=== PATIENT | female | born 1980 | race Caucasian/White ===

== ENCOUNTER → 2017-05-22 | Day surgery (SDC) | payer BC ==
[2017-05-10 11:44] VITALS: Ht 162.6 cm; Wt 68.2 kg
[~2017-05-22] VITALS: Ht 162.6 cm; Wt 68.2 kg
[~2017-05-22] MED LIST: LIDOCAINE HCL 2% 2 ML VIAL (20MG/ML) ONE; MULT-506 PO; PROPOFOL IV EMULSION 10 MG/ML 20 ML VIAL IV ONE; SODIUM CHLORIDE 0.9% 500ML 500 ML IV ONE
--- NOTE | 2017-05-22 10:11 | Endo History and Physical ---
History & Physical Date of Service: May 22, 2017. Chief Complaint: Family history of colon ca Referring Physician: Edis History of Present Illness 37 yo CF who presents for colonoscopy secondary to family history of colon cancer. Past Surgical History Hx Cardiac Surgery: Yes (CARDIAC ABLATION) Hx Internal Defibrillator: No Hx Pacemaker: No Hx Abdominal Surgery: No Hx of Implantable Prosthesis: No Hx Post-Op Nausea and Vomiting: No Hx Cancer Surgery: No Hx Thoracic Surgery: No Hx Orthopedic: No Hx Urinary Tract Surgery: No Family History Colon CA, IBD Social History Smoking Status: Former Smoker Hx Substance Use: No Hx Alcohol Use: No Allergies Coded Allergies: Penicillins (Verified Allergy, Mild, HIVES WITH PENICILLIN/AMOXIL, 05/10/17 ) Amoxicillin (Verified Allergy, Unknown, HIVES, 05/10/17) Current Medications Reported Home Medications Medications Dose Route/Sig Max Daily Dose Days Date Category Multivitamin (Multivitamins) Tab 1 Tab PO DAILY AFTERNOON 05/10/17 Reported Vital Signs Weight (Kilograms): 68.18 Height (Feet): 5 Height (Inches): 4 Date Time Temp Pulse Resp B/P (MAP) Pulse Ox O2 Delivery O2 Flow Rate FiO2 05/22/17 10:01 36.9 90 16 128/62 (84) 98 Room Air Physical Exam General Appearance: WD/WN, no apparent distress Respiratory/Chest: Auscultation: breath sounds normal Cardiovascular: Heart Auscultation: RRR Abdomen: Bowel Sounds: normal Inspection & Palpation: soft, non-distended, no tenderness, guarding & rebound Assessment and Plan Assessment: 37 yo CF who presents for colonoscopy secondary to family history of colon cancer. Plan: Proceed with colonoscopy.
--- NOTE | 2017-05-22 11:29 | Discharge Instructions ---
Endoscopy Patient Instructions Date / Procedure(s) Performed May 22, 2017. Colonoscopy Allergy Information Coded Allergies: Penicillins (Verified Allergy, Mild, HIVES WITH PENICILLIN/AMOXIL, 05/10/17 ) Amoxicillin (Verified Allergy, Unknown, HIVES, 05/10/17) Discharge Date / Findings May 22, 2017. Internal hemorrhoids Medication Instructions OK to resume all medications today as prescribed Reported Home Medications Medications Dose Route/Sig Max Daily Dose Days Date Category Multivitamin (Multivitamins) Tab 1 Tab PO DAILY AFTERNOON 05/10/17 Reported Provider Instructions Activity Restrictions - No exercising or heavy lifting for 24 hours. - Do not drink alcohol the day of the procedure. - Do not drive a car or operate machinery until the day after the procedure. - Do not make any important decisions or sign important papers in 24 hours after the procedure. Following Day: - Return to full activity which may include returning to work/school. Diet Start your diet with liquids and light foods (jello, soup, juice, toast). Then eat your usual diet if not nauseated. Treatment For Common After Affects For mild abdominal pain, bloating, or excessive gas: - Rest - Eat lightly - Lie on right side Follow-Up Information Follow-up with [facility] as scheduled Anesthesia Information What You Should Know You have had a procedure that required some medicine to reduce anxiety and discomfort. This treatment is called moderate sedation. After receiving the treatment, you may be sleepy, but you will be able to breathe on your own. The effects of the treatment may last for several hours. Follow these instructions along with Activity/Diet recommendations noted above: * Do NOT do anything where dizziness or clumsiness would be dangerous. * Rest quietly at home today, then you can be up and about tomorrow. * Have a responsible person stay with you the rest of today. * You may have had an I.V. today. If so, you may take the dressing off later today. Recommendations Call your doctor if: * Trouble breathing * Continuous vomiting for more than 24 hours * Temperature above 101 degrees * Severe abdominal pain or bloating * Pain not relieved by pain medicine ordered * There is increased drainage or redness from any incision * A large amount of rectal bleeding greater than 2-3 tablespoons. (If you had a polyp/s removed or have hemorrhoids, a small amount of blood - from the rectum is to be expected.) * You have any unanswered questions or concerns. IN THE EVENT OF A SERIOUS EMERGENCY, GO TO THE NEAREST EMERGENCY ROOM Your discharge instructions were prepared by provider Destin Sanchez. Patient Instructions Signature Page Sheila Bustillos Patient (or Guardian) Signature/Date: I have read and understand the instructions given to me by my caregivers. Caregiver/RN/Doctor Signature/Date: The above-named patient and/or guardian has received patient instructions on this date. + Original Patient Signature Page (only) stays with chart. Please make copy for patient.
--- NOTE | 2017-05-22 11:36 | GI REPORT ---
Procedure Date: 05/22/2017 10:54 AM Procedure: Colonoscopy Indications: Family history of colon cancer in a first-degree relative Medicines: Monitored Anesthesia Care Complications: No immediate complications. Estimated Blood Loss: Estimated blood loss: none. Procedure: Pre-Anesthesia Assessment: - Prior to the procedure, a History and Physical was performed, and patient medications and allergies were reviewed. The patient's tolerance of previous anesthesia was also reviewed. The risks and benefits of the procedure and the sedation options and risks were discussed with the patient. All questions were answered, and informed consent was obtained. Prior Anticoagulants: The patient has taken no previous anticoagulant or antiplatelet agents. ASA Grade Assessment: II - A patient with mild systemic disease. After reviewing the risks and benefits, the patient was deemed in satisfactory condition to undergo the procedure. After I obtained informed consent, the scope was passed under direct vision. Throughout the procedure, the patient's blood pressure, pulse, and oxygen saturations were monitored continuously. The Scope was introduced through the anus and advanced to the terminal ileum. The colonoscopy was performed without difficulty. The patient tolerated the procedure well. The quality of the bowel preparation was good. The terminal ileum, ileocecal valve, appendiceal orifice, and rectum were photographed. Findings: The colon (entire examined portion) appeared normal. Impression: - The entire examined colon is normal. - No specimens collected. Recommendation: - Resume previous diet. - Continue present medications. - Repeat colonoscopy in 5 years for surveillance. - Return to primary care physician as previously scheduled. Destin Sanchez DO 05/22/2017 11:35:55 AM This report has been signed electronically. Note Initiated On: 05/22/2017 10:54 AM I attest to the content of the Intraoperative Record and orders documented therein, exceptions below
--- NOTE | 2017-05-22 11:38 | Anesthesiology Progress Note ---
Anesthesia Post Op Note Date & Time May 22, 2017 at 11:37 Vital Signs Pain Intensity: 0 Vital Signs Past 12 Hours Date Time Temp Pulse Resp B/P (MAP) Pulse Ox O2 Delivery O2 Flow Rate FiO2 05/22/17 11:27 85 16 113/69 (84) 98 Room Air 05/22/17 10:01 36.9 90 16 128/62 (84) 98 Room Air Notes Mental Status: alert / awake / arousable, participated in evaluation Pt Amnestic to Procedure: Yes Nausea / Vomiting: adequately controlled Pain: adequately controlled Airway Patency, RR, SpO2: stable & adequate BP & HR: stable & adequate Hydration State: stable & adequate Anesthetic Complications: no major complications apparent
[2017-05-22 11:57] VITALS: BP 131/84; PULSE 86; O2SAT 99
== END | disposition home or self-care (01) ==
LOC: C.GI 09:17
PROVIDERS: ATTEND Internal Medicine
DX: Z12.11 Encounter for screening for malignant neoplasm of colon (principal); Z80.0 Family history of malignant neoplasm of digestive organs; Z87.891 Personal history of nicotine dependence

== ENCOUNTER → 2017-09-25 | Outpatient (CLI) | payer BC ==
[~2017-09-25] MED LIST changes: -LIDOCAINE HCL 2% 2 ML VIAL (20MG/ML) ONE; -PROPOFOL IV EMULSION 10 MG/ML 20 ML VIAL IV ONE; -SODIUM CHLORIDE 0.9% 500ML 500 ML IV ONE
== END | disposition home or self-care (01) ==
LOC: C.PAPS 10:20
PROVIDERS: ATTEND Obstetrics & Gynecology
DX: Z01.419 Encounter for gynecological examination (general) (routine) without abnormal findings (principal)

== ENCOUNTER 2018-01-27 10:42 | Emergency (ER) | payer BC, OTHER ==
[~2018-01-27] VITALS: Ht 160 cm; Wt 72.8 kg
[2018-01-27 10:55] VITALS: TEMP 36.7; Ht 160 cm; Wt 72.8 kg
--- NOTE | 2018-01-27 11:33 | DIAGNOSTIC IMAGING REPORT ---
CHEST ONE VIEW PORTABLE CLINICAL HISTORY: chest pain dyspnea COMPARISON STUDY: No previous studies for comparison. FINDINGS: The bones soft tissues and hemidiaphragms are normal. The cardiomediastinal silhouette is normal. The lungs are clear. The pulmonary vasculature is normal. IMPRESSION: Negative chest. The above report was generated using voice recognition software. It may contain grammatical, syntax or spelling errors. Electronically signed by: Arsalan Benitez M.D. 01/27/2018 11:32 AM Dictated Date/Time: 01/27/2018 11:32 AM
[2018-01-27 11:49] LABS: HEMATOCRIT 40.1 % (37-47); HEMOGLOBIN 14.5 g/dL (12.0-16.0); MEAN CELL VOLUME 82.5 fL (80-100); MEAN CORPUSCULAR HEMOGLOBIN 29.8 pg (25-34); MEAN CORPUSCULAR HGB CONC 36.2 g/dl (32-36); MEAN PLATELET VOLUME 9.9 fL (7.4-10.4); PLATELET COUNT 284 K/uL (130-400); RED CELL DISTRIBUTION WIDTH CV 12.6 % (11.5-14.5); WHITE BLOOD COUNT 7.28 K/uL (4.8-10.8)
[2018-01-27 12:00] LABS: PTT PATIENT 27.9 SECONDS (21.0-31.0)
[2018-01-27 12:06] LABS: ALBUMIN 4.6 gm/dl (3.4-5.0); CALCIUM 9.4 mg/dl (8.5-10.1); CREATININE 0.58 mg/dl (0.60-1.20)
[2018-01-27 12:11] LABS: CKMB 0.7 ng/ml (0.5-3.6); TOTAL PROTEIN 8.5 gm/dl (6.4-8.2)
[2018-01-27 16:00] VITALS: BP 116/78; PULSE 91; O2SAT 100
--- NOTE | 2018-01-27 21:44 | EMERGENCY ROOM VISIT NOTE ---
History First contact with patient: 11:38 Chief Complaint: CHEST PAIN Stated Complaint: HEAVINESS IN CHEST Nursing Triage Summary: pt reports started with pressure in L chest 1 day ago and increased exertional sob .denies RITTER or NV History of Present Illness The patient is a 37 year old female who presents to the Emergency Room with complaints of left-sided chest heaviness and pressure. Patient reports that she developed these symptoms Saturday night after taking a nap. The patient reports that she had felt fatigued the entire day. She did not notice any shortness of breath, nausea or diaphoresis. The patient reports that the pain has persisted since Saturday. The patient reports a prior history of SVT with ablation procedure performed in 2000 at [facility] in [place]. She denies any significant recurrent SVT. She does occasionally have palpitations. She denies history of thyroid disease. She denies any recent upper respiratory infections, cough, sore throat, sinus congestion or headache. She denies any exertional symptoms, and has no alleviating factors for her pain. She currently rates her discomfort a 3 out of 10 on my exam. The patient reports that she did have a Holter monitor performed approximately 2 months ago that was ordered by her PCP, and was normal, although she did not have a for 24 hour monitor because the battery went . Review of Systems HEENT: Denies dizziness, visual problems, hearing loss, tinnitus. Denies difficulty swallowing or oral lesions. PULMONARY: Denies cough, shortness of breath, sputum production or hemoptysis. CARDIOVASCULAR: Denies dyspnea on exertion, orthopnea or peripheral edema, otherwise see HPI. GASTROINTESTINAL: Denies diarrhea, constipation, nausea, vomiting, or abdominal pain. GENITOURINARY: Denies dysuria, frequency, urgency or nocturia. NEUROLOGIC: Denies history of epilepsy, CVA, TIA or chronic headaches. MUSCULOSKELETAL: Denies history of joint tenderness/swelling. SKIN: Denies rashes or lesions. PSYCHIATRIC: Denies history of depression or mental illness. ENDOCRINE: Denies history of diabetes or thyroid disorders. Past Medical/Surgical History Medical Problems: (1) Anxiety State Nos (2) SVT (supraventricular tachycardia) Surgical Problems: (1) History of cardiac radiofrequency ablation Family History FH: colon cancer in first degree relative <60 years old Social History Smoking Status: Never Smoker Alcohol Use: none Marital Status: single Occupation Status: employed Current/Historical Medications No Active Prescriptions or Reported Meds Physical Exam Vital Signs Date Time Temp Pulse Resp B/P (MAP) Pulse Ox O2 Delivery O2 Flow Rate FiO2 01/27/18 16:00 91 18 116/78 100 01/27/18 14:53 95 18 112/93 97 Room Air 01/27/18 13:48 97 01/27/18 13:00 104 14 127/82 99 01/27/18 11:58 Room Air 01/27/18 11:44 Room Air 01/27/18 11:42 Room Air 01/27/18 11:06 116 01/27/18 10:55 36.7 129 20 145/90 99 Room Air Physical Exam CONSTITUTIONAL: Healthy and well nourished. Alert and oriented X 3 with positive affect. Patient does not appear in any acute distress. HEENT: Normocephalic, atraumatic. Pupils equal, round and reactive. Ears and nares are clear. No scleral icterus or conjunctival injection/pallor. NECK: Full active range of motion without discomfort. RESPIRATORY: Clear to auscultation bilaterally with no wheezing, crackles, rhonchi or stridor. CARDIOVASCULAR: Regular rate and rhythm with no murmurs, rubs or gallops. GASTROINTESTINAL: Bowel sounds present in all quadrants. Abdomen is soft and nontender to palpation. MUSCULOSKELETAL: Full range of motion of all joints without discomfort. No tenderness to palpation across the anterior chest wall. INTEGUMENTARY: No rash or other significant dermatologic conditions noted. HEMATOLOGIC: No ecchymosis or petechiae noted. NEUROLOGIC: No focal neurologic deficits noted. Medical Decision & Procedures ER Provider Diagnostic Interpretation: My interpretation of an ECG shows a sinus tachycardia [address] elevations. My interpretation of a portable chest x-ray does not show any consolidations, pneumothorax or cardiac prominence. Radiologist report is as follows: CHEST ONE VIEW PORTABLE CLINICAL HISTORY: chest pain dyspnea COMPARISON STUDY: No previous studies for comparison. FINDINGS: The bones soft tissues and hemidiaphragms are normal. The cardiomediastinal silhouette is normal. The lungs are clear. The pulmonary vasculature is normal. IMPRESSION: Negative chest. Laboratory Results 01/27/18 11:25 01/27/18 11:25 Test 01/27/18 11:25 01/27/18 11:35 01/27/18 14:32 Red Blood Count 4.86 M/uL (4.2-5.4) Mean Corpuscular Volume 82.5 fL (80-100) Mean Corpuscular Hemoglobin 29.8 pg (25-34) Mean Corpuscular Hemoglobin Concent 36.2 g/dl (32-36) RDW Standard Deviation 38.0 fL (36.4-46.3) RDW Coefficient of Variation 12.6 % (11.5-14.5) Mean Platelet Volume 9.9 fL (7.4-10.4) Prothrombin Time 10.7 SECONDS (9.0-12.0) Prothromb Time International Ratio 1.0 (0.9-1.1) Activated Partial Thromboplast Time 27.9 SECONDS (21.0-31.0) Partial Thromboplastin Ratio 1.1 D-Dimer < 190 ug/L FEU (0-500) Anion Gap 8.0 mmol/L (3-11) Est Creatinine Clear Calc Drug Dose 129.4 ml/min Estimated GFR () 138.4 Estimated GFR (Non- 119.4 BUN/Creatinine Ratio 17.2 (10-20) Calcium Level 9.4 mg/dl (8.5-10.1) Total Bilirubin 1.6 mg/dl (0.2-1) Aspartate Amino Transf (AST/SGOT) 13 U/L (15-37) Alanine Aminotransferase (ALT/SGPT) 18 U/L (12-78) Alkaline Phosphatase 55 U/L (45-117) Total Creatine Kinase 82 U/L (26-192) Creatine Kinase MB 0.7 ng/ml (0.5-3.6) Creatine Kinase MB Ratio 0.9 (0-3.0) Total Protein 8.5 gm/dl (6.4-8.2) Albumin 4.6 gm/dl (3.4-5.0) Globulin 3.9 gm/dl (2.5-4.0) Albumin/Globulin Ratio 1.2 (0.9-2) Thyroid Stimulating Hormone (TSH) 1.280 uIu/ml (0.300-4.500) Bedside Troponin I < 0.030 ng/ml (0-0.045) Troponin I < 0.015 ng/ml (0-0.045) The above labs were reviewed, including repeat troponins that were normal. Remaining labs were also reviewed and grossly normal except for hypokalemia with a potassium of 3.0. TSH was normal. ED Course Patient history and physical exam were performed. Nurse's notes were reviewed. Vital signs were reviewed, showing elevated blood pressure 145/90. IV access was established, and labs were drawn. ECG showed a sinus tachycardia of [address] elevation or ischemic changes were noted. Review of labs showed a normal troponin repeated 90 minutes apart. D-dimer was also normal. The patient is hypokalemic with a potassium of 3.0. The patient refused any analgesics, and denied any significant discomfort on reevaluation. The case was discussed further with Dr. Reyes, ED attending physician, who suggested further outpatient cardiology follow-up. Patient was instructed to follow-up with [facility] cardiology. She was instructed to return for any progressively worsening pain, shortness of breath, diaphoresis , nausea or persistent tachycardia. The patient was happy with plan of care, and voiced understanding of all discharge instructions. It is noted that the patient's blood pressure was normal at the time of discharge. Medical Decision Patient presents to the emergency department with complaint of palpitations and chest pain. The patient reports that she does have a history of anxiety which may be playing into this as well. Her workup today is not suggestive of myocardial infarction, pulmonary embolus, pneumothorax, pneumonia, aortic dissection or other acute intrathoracic etiologies. The patient is euthyroid. She is afebrile and without leukocytosis. I do not suspect infectious etiology. I do feel that the patient is safe for outpatient cardiology follow- up, with specific instructions to return to the emergency department immediately with any worsening symptoms. Medication Reconcilliation Current Medication List: was personally reviewed by me Blood Pressure Screening Patient's blood pressure: Normal blood pressure Impression Primary Impression: Left sided chest pain Additional Impression: Hypokalemia Departure Information Dispostion Home / Self-Care Condition GOOD Prescriptions No Active Prescriptions or Reported Meds Referrals Miah Jackson M.D. Forms Call Back Authorization, HOME CARE DOCUMENTATION FORM, IMPORTANT VISIT INFORMATION Patient Instructions My [facility] Additional Instructions Follow-up with [facility] cardiology (Dr. Jackson) for further cardiac workup. Suggest taking Zantac 150 mg twice daily in case her symptoms are related to reflux. You may also try taking Tums, Maalox or Gaviscon for additional relief. Return to the emergency department for any progressively worsening symptoms. Problem Qualifiers
== END 2018-01-27 16:00 | disposition home or self-care (01) ==
LOC: C.EDB 10:44 → C.EDC 16:00
DX: R07.89 Other chest pain (principal); E87.6 Hypokalemia; I47.1 Supraventricular tachycardia; F41.9 Anxiety disorder, unspecified

== ENCOUNTER 2019-10-30 00:13 | Inpatient (IN) ==
[2019-10-30] MEDS ORDERED: OXYTOCIN 30 UNITS/500 ML BAG IV PRN ×3 (00:31→16:05)
[2019-10-30 01:31] LABS: Hematocrit (blood only) 34.7 % (37-47); Hemoglobin 11.7 g/dL (12.0-16.0); Mean Corpuscular Hemoglobin 27.4 pg (25-34); Mean Corpuscular Hgb Conc 33.7 g/dL (32-36); Mean Corpuscular Volume 81.3 fL (80-100); Mean Platelet Volume 12.5 fL (7.4-10.4); Platelet Count 190 K/uL (130-400); RDW Coefficient of Variation 13.9 % (11.5-14.5); RDW Standard Deviation 40.9 fL (36.4-46.3); Red Blood Count 4.27 M/uL (4.2-5.4); White Blood Count 9.96 K/uL (4.8-10.8)
[2019-10-30] MEDS: LACTATED RINGER'S 1,000 ML IV PRN ×3 (01:50→11:02)
[2019-10-30] MEDS ORDERED: fentaNYL 2MCG/ML ROPIV 1.25MG/ML 100 ML BAG EPI ONE (01:54)
[2019-10-30] MEDS ORDERED: fentaNYL citrate 100 MCG/2 ML VIAL ONE ×2 (01:54→11:20)
[2019-10-30] MEDS ORDERED: ePHEDrine sulfate 50 MG/ML AMP ONE ×2 (01:54→11:20)
[2019-10-30] MEDS ORDERED: BUPIVACAINE 0.25% 30 ML VIAL ONE ×2 (01:54→11:20)
--- NOTE | 2019-10-30 02:08 | Anesthesiology Consultation ---
Date of Service October 30, 2019 Assessment & Plan (1) Encounter for pre-operative examination: Chart Review Chart Review: Acceptable Risk for Labor Epidural History Height/Weight Height: 5 ft 6 in Weight: 81.193 kg Allergies Allergy/AdvReac Type Severity Reaction Status Date / Time Penicillins Allergy Mild HIVES WITH Verified 10/30/19 00:28 PENICILLIN/AMOXIL amoxicillin Allergy Unknown HIVES Verified 10/30/19 00:28 cephalexin [From Keflex] Allergy Unknown Hives Verified 10/30/19 00:28 peanut Allergy Unknown Hives Verified 10/30/19 00:54 Medications Home Medications Medication Instructions Recorded Confirmed Last Taken valacyclovir 500 mg tablet 500 mg PO DAILY #30 tab 09/17/19 10/30/19 10/29/19 07:00 calcium carbonate [Tums] 500 mg PO Q2H PRN 10/30/19 10/30/19 10/30/19 00:00 docusate sodium [Colace] 100 mg PO BID 10/30/19 10/30/19 10/29/19 07:00 famotidine [Pepcid AC] 10 mg PO HS 10/30/19 10/30/19 10/29/19 12:00 ferrous sulfate [Iron (ferrous 325 mg PO Q OTHER DAY 10/30/19 10/30/19 10/30/19 00:00 sulfate)] multivitamin 1 tab PO DAILY 10/30/19 10/30/19 10/29/19 07:00 Active Medications Generic Name Dose Route Start Last Admin Trade Name Freq PRN Reason Stop Dose Admin Lactated Ringer's 1,000 mls @ 125 mls/hr 10/30/19 00:31 10/30/19 01:50 Lr IV 11/01/19 00:30 999 mls/hr .Q8H PRN Administration L&D Protocol Protocol Past Medical History Medical History Anxiety with depression History of cardiac murmur History of chest pain atypical History of hypokalemia History of varicella History of vitamin D deficiency Past Family History Family History Aunt Breast cancer Sister Colorectal cancer Past Surgical History Surgical History S/P wisdom tooth extraction Social History Smoking Status: Former smoker Hx Alcohol Use: No Hx Substance Use: No substance use type: does not use Physical Exam Vital Signs Last Vital Signs Temp 36.8 C 10/30/19 00:39 Pulse 87 10/30/19 01:10 Resp 18 10/30/19 00:39 BP 143/96 H 10/30/19 01:10 Testing Laboratory Results 10/30/19 00:40
[2019-10-30] MEDS ORDERED: ePHEDrine sulfate 50 MG/ML AMP IV PRN (02:38)
[2019-10-30] MEDS ORDERED: ONDANSETRON INJ 2 MG/ML 2 ML VIAL IV PRN (02:38)
[2019-10-30] MEDS ORDERED: NALOXONE HCL 0.4 MG/1 ML VIAL/CARP IV PRN (02:38)
[2019-10-30] MEDS ORDERED: NALOXONE HCL 1 MG in SODIUM CHLORIDE 0.9% 1000ML 1,000 ML IV PRN (02:38)
--- NOTE | 2019-10-30 08:01 | History & Physical Report ---
Date of Service October 30, 2019 Assessment & Plan (1) : AROM performed, clear fluid. Patient recieved epidural overnight. Anticipate . History of Present Illness Chief Complaint: labor Primary Care Provider: Sara Rivera MD 39yo @ 42 11/17 presented overnight with regular contractions. I took over her care this morning at time of my exam/AROM. complicated by HSV (on valtrex as prophylaxis), advanced maternal age, maternal tachycardia. Allergies Allergy/AdvReac Type Severity Reaction Status Date / Time Penicillins Allergy Mild HIVES WITH Verified 10/30/19 00:28 PENICILLIN/AMOXIL amoxicillin Allergy Unknown HIVES Verified 10/30/19 00:28 cephalexin [From Keflex] Allergy Unknown Hives Verified 10/30/19 00:28 peanut Allergy Unknown Hives Verified 10/30/19 00:54 Home Medications Home Medications Medication Instructions Recorded Confirmed Type valacyclovir 500 mg tablet 500 mg PO DAILY #30 tab 09/17/19 10/30/19 Rx calcium carbonate [Tums] 500 mg PO Q2H PRN 10/30/19 10/30/19 History docusate sodium [Colace] 100 mg PO BID 10/30/19 10/30/19 History famotidine [Pepcid AC] 10 mg PO HS 10/30/19 10/30/19 History ferrous sulfate [Iron (ferrous 325 mg PO Q OTHER DAY 10/30/19 10/30/19 History sulfate)] multivitamin 1 tab PO DAILY 10/30/19 10/30/19 History Patient History Medical History (Updated 10/30/19 @ 02:53 by Rachel Chavira RN) Anxiety with depression H/O supraventricular tachycardia ablation in 2000 History of cardiac murmur History of chest pain atypical History of hypokalemia History of varicella History of vitamin D deficiency Surgical History (Updated 10/30/19 @ 02:54 by Rachel Chavira RN) H/O cardiac radiofrequency ablation 2000 for SVT S/P wisdom tooth extraction Family History Aunt Breast cancer Sister Colorectal cancer Social History (Updated 06/13/19 @ 11:25 by Marcie De Jseus) Preferred Language: Tunisian Communication Ability: Effective Vending Supervisor Required: No Beliefs That Will Affect Care: None marital status: Current Living Situation: Spouse and Family Current Living Situation Comment: 12 year old daughter and spouse Other Information That Helps Us Care for You: No Feels Safe at Home: Yes Safety Concerns: Feels Safe At This Time Smoking Status: Former smoker Second Hand Exposure: No ; Hx Alcohol Use: No Hx Substance Use: No Review of Systems All systems reviewed & are unremarkable except as noted in HPI & below Physical Exam Constitutional: WD/WN, vitals as above Respiratory: normal respiratory effort, lungs clear to auscultation no respiratory distress Cardiovascular: Rate/Rhythm: regular rate and regular rhythm Gastrointestinal (Abdomen): Inspection/Auscultation: abdomen normal to inspection Percussion/Palpation: abdomen soft; abdomen nontender Gravid. No s/s chorio or abruption. Skin: no rashes, warm and dry Psychiatric: A+Ox3, euthymic affect Results & Data Vital Signs (Past 12 Hours) Vital Signs Temp Pulse Resp BP Pulse Ox 10/30/19 07:56 95 H 97 10/30/19 07:51 105 H 99 10/30/19 07:46 87 97 10/30/19 07:44 96 H 152/97 H 10/30/19 07:41 88 96 10/30/19 07:38 86 149/98 H 10/30/19 07:36 87 97 10/30/19 07:34 88 158/108 H 10/30/19 07:33 99 H 88 L 10/30/19 07:31 87 134/78 98 10/30/19 07:26 93 H 98 10/30/19 07:25 92 H 90 10/30/19 07:21 86 97 10/30/19 07:20 36.6 C 22 10/30/19 07:16 93 H 96 10/30/19 07:15 85 157/84 H 10/30/19 07:11 95 H 96 10/30/19 07:06 103 H 99 10/30/19 07:02 93 H 157/84 H 10/30/19 07:01 92 H 96 10/30/19 07:00 18 10/30/19 06:56 92 H 98 10/30/19 06:51 89 96 10/30/19 06:46 96 H 97 10/30/19 06:45 96 H 142/84 H 10/30/19 06:41 99 H 98 10/30/19 06:36 89 96 10/30/19 06:31 96 H 97 10/30/19 06:30 84 18 139/92 10/30/19 06:26 94 H 94 10/30/19 06:21 100 H 99 10/30/19 06:16 93 H 98 10/30/19 06:15 89 136/78 10/30/19 06:11 88 97 10/30/19 06:06 91 H 97 10/30/19 06:01 89 137/90 97 10/30/19 06:00 36.8 C 16 10/30/19 05:56 91 H 95 10/30/19 05:51 86 97 10/30/19 05:46 92 H 97 10/30/19 05:45 88 123/82 10/30/19 05:41 88 96 10/30/19 05:36 92 H 98 10/30/19 05:31 86 116/65 96 10/30/19 05:30 18 10/30/19 05:26 89 95 10/30/19 05:22 86 131/64 10/30/19 05:21 86 98 10/30/19 05:16 115 H 165/111 H 99 10/30/19 05:11 99 H 98 10/30/19 05:06 98 H 99 10/30/19 05:01 90 97 10/30/19 05:00 96 H 16 129/91 10/30/19 04:56 101 H 98 10/30/19 04:51 98 H 98 10/30/19 04:46 94 H 98 10/30/19 04:45 93 H 128/82 10/30/19 04:41 90 96 10/30/19 04:36 91 H 97 10/30/19 04:31 95 H 98 10/30/19 04:30 98 H 18 135/95 10/30/19 04:26 93 H 99 10/30/19 04:21 96 H 97 10/30/19 04:16 101 H 97 10/30/19 04:15 95 H 140/89 10/30/19 04:11 95 H 97 10/30/19 04:06 94 H 97 10/30/19 04:01 93 H 143/96 H 97 10/30/19 04:00 36.8 C 16 10/30/19 03:56 96 H 97 10/30/19 03:51 96 H 97 10/30/19 03:46 86 99 10/30/19 03:45 16 10/30/19 03:44 88 133/85 10/30/19 03:41 91 H 95 10/30/19 03:36 87 96 10/30/19 03:31 84 96 10/30/19 03:30 18 10/30/19 03:29 83 127/82 10/30/19 03:26 84 96 10/30/19 03:21 82 96 10/30/19 03:16 89 97 10/30/19 03:15 18 10/30/19 03:14 83 136/86 10/30/19 03:11 83 97 10/30/19 03:10 100 H 91 10/30/19 03:06 78 97 10/30/19 03:01 88 96 10/30/19 03:00 16 10/30/19 02:59 81 134/83 10/30/19 02:56 84 98 10/30/19 02:54 79 131/82 10/30/19 02:51 80 98 10/30/19 02:49 87 126/82 10/30/19 02:46 83 98 10/30/19 02:45 16 10/30/19 02:43 83 135/88 10/30/19 02:41 89 134/85 99 10/30/19 02:38 84 131/87 10/30/19 02:37 82 137/87 10/30/19 02:36 84 99 10/30/19 02:34 76 141/81 H 90 10/30/19 02:33 78 163/92 H 10/30/19 02:31 89 99 10/30/19 02:26 96 H 96 10/30/19 02:24 95 H 92 10/30/19 02:21 36.6 C 92 H 99 10/30/19 01:10 87 143/96 H 10/30/19 00:39 36.8 C 85 18 146/90 H 10/30/19 00:24 85 146/90 H 10/30/19 00:23 36.8 C 18 Monitoring External Monitor FHT Cat 1, [place] Q 2-3
[2019-10-30] MEDS: fentaNYL 2MCG/ML ROPIV 1.25MG/ML 100 ML BAG EPI PRN ×2 (09:36→13:31)
--- NOTE | 2019-10-30 11:45 | Labor Progress Brief Note ---
Date of Service October 30, 2019 Subjective Patient pushed for about 1.5 hours, with difficulty getting adequate pushing. She would attempt to push, then feel pain and stop pushing due to the pain sensation. She felt like it was mostly in her back. The few pushes that she was really able to get some strength behind the pushing were successful, but most were not really productive. She would like to try to improve her epidural pain control. FHT Cat 1. Anesthesiologist will try to either re-dose epidural or place spinal to achieve better pain control. Baby's tracing is reassuring, will let patient labor down and then continue to push. Results & Data Vital Signs (Past 12 Hours) Vital Signs Temp Pulse Resp BP Pulse Ox 10/30/19 11:38 94 H 90 10/30/19 11:31 120 H 113/69 99 10/30/19 11:26 87 95 10/30/19 11:21 83 97 10/30/19 11:16 95 H 114/67 97 10/30/19 11:11 79 98 10/30/19 11:06 79 97 10/30/19 11:01 98 H 98 10/30/19 11:00 88 148/65 H 10/30/19 10:50 20 10/30/19 10:45 95 H 143/78 H 10/30/19 10:29 90 149/76 H 10/30/19 10:20 20 10/30/19 10:15 103 H 159/84 H 10/30/19 10:00 107 H 147/86 H 10/30/19 09:51 107 H 135/98 10/30/19 09:30 101 H 126/72 10/30/19 09:27 97 H 98 10/30/19 09:23 106 H 93 10/30/19 09:22 107 H 94 10/30/19 09:20 36.6 C 22 10/30/19 09:17 100 H 87 L 10/30/19 09:16 95 H 99 10/30/19 09:12 98 H 91 10/30/19 09:11 95 H 98 10/30/19 09:06 97 H 98 10/30/19 09:01 91 H 149/83 H 97 10/30/19 08:59 98 H 92 10/30/19 08:56 95 H 98 10/30/19 08:52 96 H 90 10/30/19 08:51 92 H 97 10/30/19 08:50 20 10/30/19 08:46 88 140/84 97 10/30/19 08:41 94 H 98 10/30/19 08:36 97 H 86 L 10/30/19 08:32 100 H 153/101 H 10/30/19 08:31 96 H 97 10/30/19 08:29 99 H 93 10/30/19 08:26 96 H 99 10/30/19 08:21 90 97 10/30/19 08:20 101 H 20 92 10/30/19 08:16 97 H 97 10/30/19 08:14 93 H 137/90 10/30/19 08:11 106 H 96 10/30/19 08:06 88 98 10/30/19 08:02 93 H 125/87 10/30/19 08:01 96 H 97 10/30/19 07:56 95 H 97 10/30/19 07:51 105 H 99 10/30/19 07:50 20 10/30/19 07:46 87 97 10/30/19 07:44 96 H 152/97 H 10/30/19 07:41 88 96 10/30/19 07:38 86 149/98 H 10/30/19 07:36 87 97 10/30/19 07:34 88 158/108 H 10/30/19 07:33 99 H 88 L 10/30/19 07:31 87 134/78 98 10/30/19 07:26 93 H 98 10/30/19 07:25 92 H 90 10/30/19 07:21 86 97 10/30/19 07:20 36.6 C 22 10/30/19 07:16 93 H 96 10/30/19 07:15 85 157/84 H 10/30/19 07:11 95 H 96 10/30/19 07:06 103 H 99 10/30/19 07:02 93 H 157/84 H 10/30/19 07:01 92 H 96 10/30/19 07:00 18 10/30/19 06:56 92 H 98 10/30/19 06:51 89 96 10/30/19 06:46 96 H 97 10/30/19 06:45 96 H 142/84 H 10/30/19 06:41 99 H 98 10/30/19 06:36 89 96 10/30/19 06:31 96 H 97 10/30/19 06:30 84 18 139/92 10/30/19 06:26 94 H 94 10/30/19 06:21 100 H 99 10/30/19 06:16 93 H 98 10/30/19 06:15 89 136/78 10/30/19 06:11 88 97 10/30/19 06:06 91 H 97 10/30/19 06:01 89 137/90 97 10/30/19 06:00 36.8 C 16 10/30/19 05:56 91 H 95 10/30/19 05:51 86 97 10/30/19 05:46 92 H 97 10/30/19 05:45 88 123/82 10/30/19 05:41 88 96 10/30/19 05:36 92 H 98 10/30/19 05:31 86 116/65 96 10/30/19 05:30 18 10/30/19 05:26 89 95 10/30/19 05:22 86 131/64 10/30/19 05:21 86 98 10/30/19 05:16 115 H 165/111 H 99 10/30/19 05:11 99 H 98 10/30/19 05:06 98 H 99 10/30/19 05:01 90 97 10/30/19 05:00 96 H 16 129/91 10/30/19 04:56 101 H 98 10/30/19 04:51 98 H 98 10/30/19 04:46 94 H 98 10/30/19 04:45 93 H 128/82 10/30/19 04:41 90 96 10/30/19 04:36 91 H 97 10/30/19 04:31 95 H 98 10/30/19 04:30 98 H 18 135/95 10/30/19 04:26 93 H 99 10/30/19 04:21 96 H 97 10/30/19 04:16 101 H 97 10/30/19 04:15 95 H 140/89 10/30/19 04:11 95 H 97 10/30/19 04:06 94 H 97 10/30/19 04:01 93 H 143/96 H 97 10/30/19 04:00 36.8 C 16 10/30/19 03:56 96 H 97 10/30/19 03:51 96 H 97 10/30/19 03:46 86 99 10/30/19 03:45 16 10/30/19 03:44 88 133/85 10/30/19 03:41 91 H 95 10/30/19 03:36 87 96 10/30/19 03:31 84 96 10/30/19 03:30 18 10/30/19 03:29 83 127/82 10/30/19 03:26 84 96 10/30/19 03:21 82 96 10/30/19 03:16 89 97 10/30/19 03:15 18 10/30/19 03:14 83 136/86 10/30/19 03:11 83 97 10/30/19 03:10 100 H 91 10/30/19 03:06 78 97 10/30/19 03:01 88 96 10/30/19 03:00 16 10/30/19 02:59 81 134/83 10/30/19 02:56 84 98 10/30/19 02:54 79 131/82 10/30/19 02:51 80 98 10/30/19 02:49 87 126/82 10/30/19 02:46 83 98 10/30/19 02:45 16 10/30/19 02:43 83 135/88 10/30/19 02:41 89 134/85 99 10/30/19 02:38 84 131/87 10/30/19 02:37 82 137/87 10/30/19 02:36 84 99 10/30/19 02:34 76 141/81 H 90 10/30/19 02:33 78 163/92 H 10/30/19 02:31 89 99 10/30/19 02:26 96 H 96 10/30/19 02:24 95 H 92 10/30/19 02:21 36.6 C 92 H 99 10/30/19 01:10 87 143/96 H 10/30/19 00:39 36.8 C 85 18 146/90 H 10/30/19 00:24 85 146/90 H 10/30/19 00:23 36.8 C 18
--- NOTE | 2019-10-30 13:12 | Communication Note ---
Date of Service: October 30, 2019 patient complaining of low back pain, she is complete but unable to push secondary to pain. sensory level is adequate to temperature and the patient is conversing normally during contractions. i did try to dose her twice with 1% lidocaine to "no benefit." i spoke with dr powers, who was hoping we could get her more numb to allow the head to decend in the pelvis, and she thinks that at this point she will be able to deliver with out too much pushing as the contractions are adequate. I discussed this with the patient, and then did remove her epidural and place a spinal at the L3/4 space with the patient lying RLD. I then threaded another epidural catheter in the space which we can use if the 2nd stage outlasts her spinal dose. She is more comfortable and will rest for now to allow descent of the head.
[2019-10-30] MEDS ORDERED: OXYTOCIN 30 UNITS/500 ML BAG IV SCH (14:45)
[2019-10-30] MEDS ORDERED: SUPERCREAM 0.870% 15 GM JAR EXT PRN (16:05)
[2019-10-30] MEDS ORDERED: ACETAMINOPHEN 325 MG TAB PO PRN (16:05)
[2019-10-30] MEDS ORDERED: DIPHTHERIA/TETANUS/PERTUSSIS 0.5 ML SYR/VIAL IM ONE (16:05)
[2019-10-30] MEDS ORDERED: bisacodyL 10 MG SUPP PR PRN (16:05)
[2019-10-30] MEDS ORDERED: HYDROCORTISONE ACETATE 25 MG SUPP PR PRN (16:05)
[2019-10-30] MEDS ORDERED: BENZOCAINE 20% AER SPR 82.5 GM CAN EXT PRN (16:05)
[2019-10-30] MEDS ORDERED: IBUPROFEN 600 MG TAB PO PRN (16:05)
--- NOTE | 2019-10-30 16:54 | Anesthesia Procedure Note ---
Date of Service October 30, 2019 Anesthesia Post Epidural Note Vital Signs Vital Signs: Temp Pulse Resp BP Pulse Ox 37.0 C 112 H 20 140/69 97 10/30/19 15:15 10/30/19 16:45 10/30/19 16:30 10/30/19 16:45 10/30/19 15:43 Pain Intensity Bilateral Abdomen: Pain Intensity: 3 Notes Mental Status: alert / awake / arousable Nausea / Vomiting: adequately controlled Pain: adequately controlled Airway Patency, RR, SpO2: stable & adequate BP & HR: stable & adequate Hydration State: stable & adequate Neuraxial Anesthesia: was administered and sensory block is resolving Anesthetic Complications: no major complications apparent and Pt Satisfied with anesthetic care Epidural: Removed without complications and With tip intact
[2019-10-30 18:41] LABS: Hematocrit (blood only) 33.5 % (37-47); Hemoglobin 11.3 g/dL (12.0-16.0); Mean Corpuscular Hemoglobin 27.2 pg (25-34); Mean Corpuscular Hgb Conc 33.7 g/dL (32-36); Mean Corpuscular Volume 80.5 fL (80-100); Mean Platelet Volume 11.9 fL (7.4-10.4); Platelet Count 201 K/uL (130-400); RDW Coefficient of Variation 14.1 % (11.5-14.5); Red Blood Count 4.16 M/uL (4.2-5.4); White Blood Count 20.49 K/uL (4.8-10.8)
[2019-10-30 18:55] LABS: Albumin Level 2.3 gm/dl (3.4-5.0); BUN Creatinine Ratio 9.9 (10-20); Calcium 8.8 mg/dl (8.5-10.1); Creatinine Clr Calc Pharmacy 102.2 ml/min; Est GFR (African American) 107.5; Est GFR (Non-African American) 92.8; Potassium 3.2 mmol/L (3.5-5.1)
[2019-10-30 18:58] LABS: Albumin Globulin Ratio 0.6 (0.9-2); Bilirubin,Total 0.8 mg/dl (0.2-1); Globulin 3.7 gm/dl (2.5-4.0)
--- NOTE | 2019-10-30 20:14 | Operative Report ---
DATE OF OPERATION: 10/30/2019 PROCEDURE: Vacuum-assisted vaginal delivery with second-degree laceration repair. SURGEON: Dexter Butt MD. ESTIMATED BLOOD LOSS: 300 mL. DRAINS: None. FLUIDS: Continuous lactated Ringer. URINE OUTPUT: Approximately 30 mL prior to vacuum assist and approximately another 150 mL after delivery. COMPLICATIONS: None. INDICATIONS: Sheila is a 39-year-old G2, P1-0-0-1, at 40 weeks 1 day gestational age, presented overnight with spontaneous rupture of membranes and regular contractions. The patient slowly progressed in labor to where she was complete-complete +1 station. At that time, the patient was painful and was requesting that she start to push. The patient pushed for approximately 2 hours, at which time, the patient reported significant fatigue and was very painful, which was making it difficult for her to push. Her epidural was bolused at that time and the patient was able to labor down for another short period of time. The patient once again started to feel the urge to push and pushed for approximately another hour and 45 minutes, at which time the patient had pushed for an entire 3 hours and 45 minutes and was starting to feel significant maternal fatigue. I discussed options at that point including a section versus a vacuum-assisted delivery. The patient was making nice progress with pushing and had a progressive +2 station. After review of the risks, the patient opted for a vacuum-assisted delivery. DESCRIPTION OF PROCEDURE: The patient progressed to 10 cm dilated, 100% effaced, and pushed to +2 station. After discussion of the vacuum-assisted delivery was obtained, a vacuum was applied. We continued to push over 2 contractions and 2 pulls to achieve delivery. The vacuum was insufflated to within the green zone and a check care was maintained, so that only appropriate amount of tension was applied as indicated by the Kiwi device. The head of the after , the vacuum was removed and the patient pushed over an additional contraction to achieve delivery of the head. Head of the was noted to be coming down the canal in an asynclitic position as noted by the caput. The body and shoulders quickly followed over approximately 2 more pushes and the was noted to be vigorous soon after delivery. The was delivered to maternal abdomen. A 1-minute delayed cord clamping was initiated. The remained vigorous throughout. Cord was then double clamped and cut, and cord blood was obtained. Attention was then turned to delivery of the placenta which delivered intact, 3-vessel cord, with gentle cord traction. On inspection of the perineum, vagina, and cervix, there was noted to be a second degree perineal laceration, which was repaired with 3-0 Vicryl in the standard crown stitch. Needle, sponge and instrument counts were correct at the completion of the case. Both mother and were stable in the immediate post-delivery period. I attest to the content of the Intraoperative Record and any orders documented therein. Any exception s are noted below.
[2019-10-30] MEDS ORDERED: FAMOTIDINE 10 MG TABLET PO SCH (21:00)
[2019-10-30] MEDS: DOCUSATE SODIUM 100 MG CAP PO SCH (22:42)
[2019-10-31] MEDS ORDERED: POTASSIUM CHLORIDE 20 MEQ TABCR PO STA (06:29)
[2019-10-31 06:57] LABS: Hematocrit (blood only) 29.4 % (37-47); Hemoglobin 9.8 g/dL (12.0-16.0); Mean Corpuscular Hemoglobin 27.1 pg (25-34); Mean Corpuscular Hgb Conc 33.3 g/dL (32-36); Mean Corpuscular Volume 81.2 fL (80-100); Mean Platelet Volume 11.1 fL (7.4-10.4); Platelet Count 174 K/uL (130-400); RDW Coefficient of Variation 14.3 % (11.5-14.5); RDW Standard Deviation 42.5 fL (36.4-46.3); Red Blood Count 3.62 M/uL (4.2-5.4); White Blood Count 15.02 K/uL (4.8-10.8)
--- NOTE | 2019-10-31 07:15 | Obstetrical Progress Note ---
Date of Service October 31, 2019 Assessment & Plan (1) Hypokalemia: (2) History of herpes genitalis: (3) Encounter for care and examination after delivery: s/p VAVD after protracted and difficult delivery on 10/30. - Hx of genital HSV; prophylaxis with valtrex daily prior to delivery - Had elevated blood pressures yesterday; preeclampsia labs drawn. Negative for AST/ALT elevations, Cr elevation. - WBC down from 20 to 15k this morning. No fevers overnight; highest T of 37.6. - Hx of hypokalemia: K 3.2 yesterday, supplemented 40 mEq K PO this AM. - continue supportive care Supervising Physician Co-Signing Physician Notes Resident Physician Supervision Note: I was present with Dr. Meyers during the history and exam. I discussed the case with the resident and agree with the findings and plan as documented in the note. Any exceptions or clarifications are listed here: PPD#1 doing well, DC home today. Instructions reviewed. Documented By: Irish Flores, DO Subjective Doing well this AM after protracted labor yesterday. Mild headache yesterday but no issues at this time. Had some leg swelling immediately after delivery, de creased subjectively this morning. Review of Systems Constitutional: + fatigue; no fever and no chills Respiratory: no cough and no dyspnea Cardiovascular: no chest pain, no syncope, no edema and no calf pain Gastrointestinal: + cramping; no abdominal pain, no nausea, no vomiting, no constipation and no diarrhea/loose stools Genitourinary: no dysuria and no difficulty urinating Neurologic: no headache(s) Physical Exam Constitutional: well developed and well nourished Respiratory: normal respiratory effort; no respiratory distress, no labored breathing and no cough Auscultation: no crackles, no rales, no rhonchi and no wheezes Cardiovascular: Rate/Rhythm: regular rate and regular rhythm Heart Sounds: no gallop, no murmur and no cardiac rub Extremities: no pedal edema Gastrointestinal (Abdomen): Inspection/Auscultation: + abdomen distended and normal bowel sounds Percussion/Palpation: abdomen soft; no guarding Musculoskeletal: no tenderness to palpation of calves bilaterally Genitourinary: Uterus small and firm, palpable in midline at level of umbilicus, some tenderness to palpation. Results & Data Vital Signs (Past 12 Hours) Vital Signs Temp Pulse Pulse Resp BP BP 10/31/19 03:30 37.0 C 87 16 117/75 10/30/19 23:20 37.1 C 91 H 16 123/74 10/30/19 19:32 37.6 C H 121 H 121 H 18 141/88 H 141/88 H 10/31/19 10/30/19 10/30/19 Range/Units 06:47 18:27 18:27 WBC 15.02 H 20.49 H D (4.8-10.8) K/uL RBC 3.62 L 4.16 L (4.2-5.4) M/uL Hgb 9.8 L 11.3 L (12.0-16.0) g/dL Hct 29.4 L 33.5 L (37-47) % MCV 81.2 80.5 (80-100) fL MCH 27.1 27.2 (25-34) pg MCHC 33.3 33.7 (32-36) g/dL RDW Std Deviation 42.5 41.0 (36.4-46.3) fL RDW Coeff of Andrew 14.3 14.1 (11.5-14.5) % Plt Count 174 201 (130-400) K/uL MPV 11.1 H 11.9 H (7.4-10.4) fL Sodium 139 (136-145) mmol/L Potassium 3.2 L (3.5-5.1) mmol/L Chloride 108 H (98-107) mmol/L Carbon Dioxide 23 (21-32) mmol/L Anion Gap 7.0 (3-11) BUN 8 (7-18) mg/dl Creatinine 0.81 (0.6-1.2) mg/dl Est Cr Clr Drug Dosing 102.2 ml/min Est GFR ( Amer) 107.5 Est GFR (Non-Af Amer) 92.8 BUN/Creatinine Ratio 9.9 L (10-20) Glucose 132 H (70-99) mg/dl Calcium 8.8 (8.5-10.1) mg/dl Total Bilirubin 0.8 (0.2-1) mg/dl AST 20 (15-37) U/L ALT 15 (12-78) U/L Alkaline Phosphatase 184 H (45-117) U/L Total Protein 6.0 L (6.4-8.2) gm/dl Albumin 2.3 L (3.4-5.0) gm/dl Globulin 3.7 (2.5-4.0) gm/dl Albumin/Globulin Ratio 0.6 L (0.9-2) PG Care Time/CCT Total # of Minutes Spent Total Time Spent with Patient: Total time spent is greater than 50% in coordi nation of care (as documented) at patient's floor/unit and/or counseling patient: Resident Activity Tracking Resident Involvement: Resident Care Provided Care Provided: OB Delivery
[2019-10-31] MEDS ORDERED: PRENATAL VITAMIN 1 TAB PO SCH (08:00)
[2019-10-31] MEDS: DOCUSATE SODIUM 100 MG CAP PO SCH (08:15)
[2019-10-31] MEDS ORDERED: FERROUS SULFATE 325 MG TAB PO SCH (09:00)
[2019-10-31] MEDS ORDERED: bisacodyL 5 MG TABEC PO SCH (20:00)
== END 2019-10-31 19:20 | disposition home or self-care (01) | DRG 806 ==
LOC: 4S1 00:13 → 4S2 19:40